=== PATIENT | male | born 1985 | race Caucasian/White ===

== ENCOUNTER 2017-02-04 12:37 | Emergency (ER) | payer SELFPAY ==
[~2017-02-04] VITALS: Ht 175.3 cm; Wt 84.4 kg
[2017-02-04 13:05] VITALS: BP 162/85
--- NOTE | 2017-02-04 13:06 | PHYS DOC ---
Adult General Chief Complaint Chief Complaint: LACERATION/AVULSION [facility] HPI Patient is a 31 year old female presents to the emergency department stating that he hit his left lower leg on a table this morning. He has approximately 1 cm laceration to the left lower leg. Patient states that he did do methamphetamines this morning. Patient also states he did alcohol last night. She does have a history of smoking. He is unsure when his last tetanus immunization occurred. Bleeding is currently controlled. Review of Systems Review of Systems Constitutional: Denies fever or chills [] Eyes: Denies change in visual acuity, redness, or eye pain [] HENT: Denies nasal congestion or sore throat [] Respiratory: Denies cough or shortness of breath [] Cardiovascular: No additional information not addressed in HPI [] GI: Denies abdominal pain, nausea, vomiting, bloody stools or diarrhea [] : Denies dysuria or hematuria [] Musculoskeletal: Denies back pain or joint pain [] Integument: Denies rash or skin lesions. Laceration 1 cm to left lower leg Neurologic: Denies headache, focal weakness or sensory changes [] Endocrine: Denies polyuria or polydipsia [] Current Medications Current Medications Current Medications Medications (Trade) Dose Ordered Sig/Maksim Start Time Stop Time Status Last Admin Dose Admin Diphtheria/ Tetanus/Acell Pertussis (Boostrix) 0.5 ml ONCE ONCE 02/04/17 13:15 02/04/17 13:16 DC 02/04/17 13:27 0.5 ML Lidocaine/Sodium Bicarbonate (Buffered Lidocaine 1%) 20 ml 1X ONCE 02/04/17 13:15 02/04/17 13:16 DC 02/04/17 13:28 20 ML Allergies Allergies Allergies Coded Allergies Type Severity Reaction Last Updated Verified No Known Drug Allergies 02/04/17 No Physical Exam Physical Exam Constitutional: Well developed, well nourished, no acute distress, non-toxic appearance. [] HENT: Normocephalic, atraumatic, bilateral external ears normal, oropharynx moist, no oral exudates, nose normal. [] Eyes: PERRLA, EOMI, conjunctiva normal, no discharge. [] Neck: Normal range of motion, no tenderness, supple, no stridor. [] Cardiovascular:Heart rate regular rhythm Lungs & Thorax: no respiratory distress noted. Skin: Warm, dry, no erythema, no rash. Laceration left lower leg 1 cm in length. No bleeding noted. Extremities: No tenderness, no cyanosis, no clubbing, ROM intact, no edema. [] Neurologic: Alert and oriented X 3, normal motor function, normal sensory function, no focal deficits noted. [] Psychologic: Affect normal, judgement normal, mood normal. [] Current Patient Data Vital Signs Vital Signs Date Time Temp Pulse Resp B/P (MAP) Pulse Ox O2 Delivery O2 Flow Rate FiO2 02/04/17 13:05 97.5 122 18 100 Room Air 97.5 EKG EKG EKG completed at 1333 with a heart rate of 111 sinus tachycardia noted no STEMI noted per Dr. Tavera.[] Radiology/Procedures Radiology/Procedures [] Course & Med Decision Making Course & Med Decision Making Pertinent Labs and Imaging studies reviewed. (See chart for details) Patient will be discharged home in stable condition. Recommended keep the area clean and dry. Clean the site with same soap and water and apply antibiotic ointment to the area. Patient was provided with signs and symptoms of infection patient will be discharged home in stable condition with signs and symptoms to return back to the emergency department. Patient agrees with discharge instructions treatment regimens and follow-up recommendations. All questions and concerns been answered at the patient's bedside. [] Dragon Disclaimer Dragon Disclaimer This electronic medical record was generated, in whole or in part, using a voice recognition dictation system. Departure Departure Impression: Primary Impression: Laceration Disposition: 01 HOME, SELF-CARE Condition: STABLE Patient Instructions: Laceration Care, Adult, [id number] Additional Instructions: Activity as tolerated. Keep the area clean and dry. Clean the site with soap and water and apply antibiotic ointment to the area. Watch for signs and symptoms of infection: Redness, warmth, tenderness or any yellow/greenish drainage of a come from the site if this should occur follow-up to primary care physician immediately. Jakob out in approximately 7 days. Return back to emergency prior signs symptoms of become worse. Follow-up with primary care physician in the next 7-10 days for suture removal. Laceration/Wound Repair Laceration/Wound Repair : Wound Location: lower extremity Wound's Depth, Shape: superficial Wound Length (cm): 1 Irrigated w/ Saline (ccs): 60 Betadine Prep?: Yes Anesthesia: 1% Lidocaine Volume Anesthetic (ccs): 5 Wound Repaired With: sutures Progress Site was then cleaned with Betadine with 3 jakob placed. Patient tolerated the procedure well. RAHAT LANDEROS APRN Feb 04, 2017 13:06
[2017-02-04] MEDS ORDERED: DIPHTH,PERTUSS(ACELL),TET TOX 0.5 ML DISP.SYRIN. VAX IM ONE (13:15)
[2017-02-04] MEDS ORDERED: LIDOCAINE 1% / SOD BICARB 8.4% 20 ML VIAL. IJ ONE (13:15)
--- NOTE | 2017-02-04 13:58 | EKG ---
[facility] [address] [place] [address] Test Date: 2017-02-04 Test Time: 13:33:26 Pat Name: DAXA VALDEZ Department: Room: Gender: M [employer]: : 1985 Requested By: RAHAT LANDEROS Order Number: [id number] Reading MD: Measurements Intervals [place] Rate: 111 P: 47 UT: 124 QRS: 44 QRSD: 88 T: 26 QT: 320 QTc: 438 Interpretive Statements SINUS TACHYCARDIA OTHERWISE NORMAL ECG RI6.01 Unconfirmed report No previous ECG available for comparison
== END 2017-02-04 13:40 | disposition home or self-care (01) ==
LOC: ER 12:37
DX: S81.812A Laceration without foreign body, left lower leg, initial encounter (principal); Z87.891 Personal history of nicotine dependence; W22.8XXA Striking against or struck by other objects, initial encounter; Y93.89 Activity, other specified; Y92.89 Other specified places as the place of occurrence of the external cause; Y99.8 Other external cause status
CPT/HCPCS: 12001; 90471; 90715; 93005; 99283-25